=== PATIENT | male | born 1955 | race Two or more races ===

== ENCOUNTER 2023-07-22 11:42 | Emergency (ER) | payer MEDICARE ==
[~2023-07-22] VITALS: Ht 170.2 cm; Wt 108.9 kg
[2023-07-22 13:17] LABS: APPEARANCE,URINE SLIGHTLY CLOUDY (CLEAR); BILIRUBIN,URINE NEGATIVE (NEGATIVE); BLOOD, URINE 3+ Ery/uL (NEGATIVE); COLOR,URINE ORANGE (YELLOW); KETONES,URINE 1+ mg/dL (NEGATIVE); LEUKOCYTE ESTERASE ,URINE TRACE (NEGATIVE); NITRITE, URINE POSITIVE (NEGATIVE); PROTEIN,URINE 2+ mg/dl (NEGATIVE); UGLUCOSE 3+ mg/dL (NEGATIVE)
[2023-07-22 13:19] LABS: ADD URINE CULTURE YES; BACTERIA,URINE Few /HPF (None Seen); SQUAMOUS EPITHELIAL CELL,UR Rare /HPF (None Seen)
[2023-07-22] MEDS ORDERED: TAMS-12 PO (14:09)
[2023-07-22] MEDS ORDERED: CEFD300C3 PO (14:09)
[2023-07-22 14:25] VITALS: BP 131/84; TEMP 208.8; O2SAT 97
== END 2023-07-22 14:25 | disposition home or self-care (01) ==
LOC: ER 11:57
DX: N39.0 Urinary tract infection, site not specified (principal); E11.9 Type 2 diabetes mellitus without complications; I10 Essential (primary) hypertension; Z60.2 Problems related to living alone
CPT/HCPCS: 81001; 87086-TC